=== PATIENT | male | born 1970 | race Caucasian/White ===

== ENCOUNTER 2017-03-17 13:53 | Emergency (ER) | payer OTHER ==
[~2017-03-17] VITALS: Ht 177.8 cm; Wt 68.0 kg
[2017-03-17 13:55] VITALS: BP 111/72
--- NOTE | 2017-03-17 14:08 | ED SKIN/ALLERGY COMPLAINT ---
History of Present Illness General Chief Complaint: General Adult Stated Complaint: NEEDLE STICK Source: patient Exam Limitations: no limitations Vital Signs & Intake/Output Vital Signs & Intake/Output Vital Signs Date Time Temp Pulse Resp B/P B/P Pulse O2 O2 Flow FiO2 Mean Ox Delivery Rate 03/17 1355 96.9 61 18 111/72 97 Room Air ED Intake and Output 03/18 0000 03/17 1200 Intake Total 0 Output Total Balance 0 Intake, Oral 0 Patient 150 lb Weight Weight Estimated Measurement Method Allergies Coded Allergies: erythromycin base (From ERYTHROCIN) (UNKNOWN 08/10/15) Triage Note: PT TO ER S/P NEEDLE STICK INJURY AT WORK TO RIGHT 3RD FINGER. Triage Nurses Notes Reviewed? yes Onset: Abrupt Duration: minute(s):, continues in ED Timing: single episode today Severity: mild Location: index finger HPI: pt presents for evaluation of a needle puncture to right middle finger. Past History Travel History Traveled to [place] past 21 day No Medical History Any Pertinent Medical History? see below for history Neurological: NONE EENT: NONE Cardiovascular: NONE Respiratory: NONE Gastrointestinal: irritable bowel syndrome Hepatic: NONE Renal: NONE Musculoskeletal: NONE Psychiatric: NONE Endocrine: NONE Blood Disorders: NONE Cancer(s): NONE [employer]/Reproductive: NONE Surgical History Surgical History: non-contributory Psychosocial History What is your primary language Armenian Tobacco Use: Never used Family History Hx Contributory? No Review of Systems Review of Systems Constitutional: Reports: no symptoms. EENTM: Reports: no symptoms. Respiratory: Reports: no symptoms. Cardiovascular: Reports: no symptoms. GI: Reports: no symptoms. Genitourinary: Reports: no symptoms. Musculoskeletal: Reports: no symptoms. Skin: Reports: see HPI. Neurological/Psychological: Reports: no symptoms. Hematologic/Endocrine: Reports: no symptoms. Immunologic/Allergic: Reports: no symptoms. All Other Systems: Reviewed and Negative Physical Exam Physical Exam General Appearance: SEE BELOW Comments: Gen.: Well-nourished, well-developed, no acute respiratory distress. Head: Normocephalic, atraumatic. Eyes: Normal inspection bilaterally Ears: Normal inspection bilaterally Nose: Normal inspection Throat/mouth : Moist mucosa Neck: Supple, full range of motion, no goiter Heart: Regular rate and rhythm Lungs: Quiet respirations Back: Normal range of motion Extremities: Right third finger: Puncture wound of the tip. no erythema or bleeding Neurologic: Cranial nerves grossly intact, speech is clear Skin: warm and dry Psychiatric: Calm, cooperative, no apparent delusions or hallucinations Progress Differential Diagnosis: bloodborne infection exposure Plan of Care: Orders Procedure Date/time Status HIV EXPOSURE/NEEDLESTICK 03/17 140 Complete HEPT C ANTIBODY 03/17 1408 Complete HEPT B SURFACE ANTIBODY 03/17 140 Complete GAMMA GLUTAMYL TRANSFERASE 03/17 140 Complete COMPREHENSIVE METABOLIC PANEL 03/17 140 Complete CBC WITHOUT DIFFERENTIAL 03/17 1407 Complete Laboratory Tests 03/17/17 1411: Anion Gap 14, Estimated GFR > 60, BUN/Creatinine Ratio 15.0, Glucose 103 H, Calcium 9.8, Total Bilirubin 0.3, GGT 20, AST 29, ALT 35, Alkaline Phosphatase 52, Total Protein 7.6, Albumin 4.9, Globulin 2.7, Albumin/Globulin Ratio 1.8, CBC w Diff NO MAN DIFF REQ, RBC 4.20 L, MCV 88.9, MCH 30.2, RDW 13.8, MPV 7.7, Gran % 51.9, Lymphocytes % 36.9, Monocytes % 8.5, Eosinophils % 2.1, Basophils % 0.6, Absolute Granulocytes 1.9, Absolute Lymphocytes 1.4, Absolute Monocytes 0.3 , Absolute Eosinophils 0.1, Absolute Basophils 0, PUBS MCHC 34.0, Hep Bs Antibody REACTIVE, Hepatitis C Antibody NONREACTIVE, HIV 1&2 Antibody NONREACTIVE Departure Departure Disposition: HOME OR SELF CARE Condition: Stable Clinical Impression Primary Impression: Needle stick injury of finger Qualifiers: Encounter type: initial encounter Qualified Codes: S61.239A - Puncture wound without foreign body of unspecified finger without damage to nail , initial encounter; W27.3XXA - Contact with needle (sewing), initial encounter Referrals: Giancarlo FERGUSON,MNicolasa Mcmanus (PCP/Family) Additional Instructions: follow up with [facility] tomorrow. return if any concerns or worsening. Departure Forms: Customer Survey [employer] Employee Acc Report General Discharge Information
[2017-03-17 14:24] LABS: ABSOLUTE BASOPHIL COUNT 0 /CUMM (0.0-0.2); ABSOLUTE EOSINOPHIL COUNT 0.1 /CUMM (0.0-0.7); ABSOLUTE GRANULOCYTE CT 1.9 /CUMM (1.4-6.5); ABSOLUTE LYMPH COUNT 1.4 /CUMM (1.2-3.4); ABSOLUTE MONOCYTE COUNT 0.3 /CUMM (0.10-0.60); BASOPHIL % 0.6 % (0.0-2.0); EOSINOPHIL % 2.1 % (0-5); GRANULOCYTE % 51.9 % (42.2-75.2); HEMATOCRIT 37.3 % (42-52); MEAN CORPUSCULAR HGB 30.2 PG (27.0-31.0); MEAN CORPUSCULAR VOLUME 88.9 FL (80.0-94.0); MEAN PLATELET VOLUME 7.7 FL (7.4-10.4); PLATELET COUNT 257 /CUMM (130-400); RBC DISTRIBUTION WIDTH 13.8 % (11.5-14.5); WHITE BLOOD CELL COUNT 3.7 /CUMM (4.8-10.8)
== END 2017-03-17 14:39 ==
LOC: ERH 13:53
PROVIDERS: Emergency Medicine
DX: S61.232A Puncture wound without foreign body of right middle finger without damage to nail, initial encounter (principal); W46.1XXA Contact with contaminated hypodermic needle, initial encounter; Y93.9 Activity, unspecified; Y92.9 Unspecified place or not applicable
CPT/HCPCS: 86803; 87389